=== PATIENT | female | born 1945 | race Caucasian/White ===

== ENCOUNTER → 2025-01-13 | Outpatient (CLI) | payer MEDICARE, SELFPAY ==
[2025-01-13 12:59] LABS: Absolute Lymphocyte Count 1.32 X10^3/uL (0.83-4.51); Absolute Neutrophil Count 10.6 X10^3/uL (2.0-7.7); Basophil# 0.03 X10^3/uL; Basophil% 0.2 % (0-1); Eosinophil# 0.03 X10^3/uL; Eosinophils% 0.2 % (0-5); Hematocrit 41.8 % (37-47); Hemoglobin 14.2 g/dL (12.0-15.0); Lymphocyte # 1.32 X10^3/ul (0.83-4.51); Lymphocyte % 10.2 % (19-41); Mean Corpuscular Hgb 30.6 pg (27.0-32.0); Mean Corpuscular Volume 90.1 fL (81-99); Mean Platelet Vol. 9.8 fl (6.2-12.0); Monocyte# 0.98 X10^3/uL; Monocyte% 7.5 % (0-10); NRBC Flagged by Analyzer 0 % (0-5); Neutrophil # 10.61 X10^3/uL (2.7-7.7); Neutrophil % 81.7 % (47-70); Platelet Count 278 K/mm3 (150-450); RBC Distribution Width CV 13.6 % (11.6-14.6); RBC Distribution Width SD 44.5 fl (35.1-43.9); Red Blood Count 4.64 M/mm3 (4.2-5.4)
[2025-01-13 13:35] LABS: ALB/GLOB Ratio 1.4 RATIO (0.9-2.4); AST(SGOT) 34 U/L (<=31); Alanine Aminotransfer ALT/SGPT 34 U/L (<=34); Albumin, Serum 4.2 g/dL (3.4-4.8); Alkaline Phosphatase 87 U/L (35-104); Anion Gap 13 (5-15); BUN 10 mg/dL (4-19); Calcium,Total 9.7 mg/dL (7.6-11.0); Carbon Dioxide 26.1 mmol/L (21.0-32.0); Chloride 90 mmol/L (98-108); Creatinine, Serum 0.69 mg/dL (0.70-1.20); EST Glomerular Filtration Rate 88 (>60); Glucose 95 mg/dL (70-99); Protein, Total 7.1 g/dL (5.9-8.4); Sodium Level 130 mmol/L (133-145); Total Bilirubin 0.43 mg/dL (0.00-1.30)
== END | disposition home or self-care (01) ==
PROVIDERS: PCP Family Medicine; Referring Provider Student in an Organized Health Care Education/Training Program; Visit Provider Student in an Organized Health Care Education/Training Program
DX: R10.9 Unspecified abdominal pain (principal); R11.2 Nausea with vomiting, unspecified
CPT/HCPCS: 36415; 80053; 85025

== ENCOUNTER → 2025-01-16 | Outpatient (CLI) | payer MEDICARE, SELFPAY ==
--- NOTE | 2025-01-16 07:49 | US_ITS ---
EXAM: US Abdomen Limited, Gallbladder CLINICAL INDICATION: N/V TECHNIQUE: Real-time ultrasound of the right upper quadrant with image documentation. COMPARISON: No relevant prior studies available. FINDINGS: LIVER: Liver measures 13.7 cm. GALLBLADDER: Negative Farrar's sign was reported by the orthodontic technician assistant. Cholelithiasis. COMMON BILE DUCT: Unremarkable as visualized. No stones. No dilation. Common bile duct measures 0.34 cm in diameter. PANCREAS: Unremarkable as visualized. RIGHT KIDNEY: Unremarkable. No stones. No hydronephrosis. The right kidney measures 9.4 x 4.7 x 4.4 cm. US/Gallbladder IMPRESSION: Cholelithiasis. Reading Location: [id number]
== END | disposition home or self-care (01) ==
PROVIDERS: PCP Family Medicine; Referring Provider Student in an Organized Health Care Education/Training Program; Visit Provider Student in an Organized Health Care Education/Training Program
DX: R10.9 Unspecified abdominal pain (principal); R11.2 Nausea with vomiting, unspecified
CPT/HCPCS: 76705

== ENCOUNTER 2025-03-19 11:49 | Day surgery (SDC) | payer MEDICARE, SELFPAY ==
--- NOTE | 2025-03-17 12:30 | PAT.ANE_ITS ---
Pre-Assessment Diagnosis/Proposed Procedure Planned Operative Procedure(s): COLONOSCOPY Anesthesia History Anesthesia History - director speech and hearing: Anesthesia History - director speech and hearing Hx Hospitalization No 03/17/25 11:32 Any Problems With Anesthesia No 03/17/25 11:32 Cholinesterase deficiency No 03/17/25 11:32 You/Your Family Experience No 03/17/25 11:32 fever (hyperthermia) with Relationship Recent Exposure to Contagious Disease Does patient have nerve No 03/17/25 11:32 stimulator Patient instructed to have device shut off --Does patient have Pacemaker or ICD? When Was Last Pacemaker Check QUESTION #4 FULL TEXT: You/Your Family Experience fever (hyperthermia) with Anesthesia Last Oral Intake Last Oral intake: Last Oral Intake NPO since Meds taken in AM with sips of water? Meds patient instructed to take am of surgery PONV PONV - director speech and hearing: PONV - director speech and hearing Female Yes 03/17/25 11:32 HX of Motion Sickness No 03/17/25 11:32 HX of N/V After Surgery No 03/17/25 11:32 Non-Smoker Yes 03/17/25 11:32 Duration of Surgery greater No 03/17/25 11:32 than 60 minutes Number of Risk Factors 2 03/17/25 11:32 PONV Score Moderate Risk 03/17/25 11:32 Respiratory Assessment Respiratory Assessment - director speech and hearing: Respiratory Tract Infection Hx - director speech and hearing Hx Respiratory Tract Infection No 03/17/25 11:32 STOP Sleep Apnea STOP Sleep Apnea - director speech and hearing: STOP Sleep Apnea - director speech and hearing Hx Hypertension No 03/17/25 11:32 Hx Sleep Apnea No 03/17/25 11:32 CPAP BIPAP Do you snore loudly (louder No 03/17/25 11:32 than talking or can be heard Do you often feel tired/ No 03/17/25 11:32 fatigued/ sleepy during daytime? Has anyone observed you stop No 03/17/25 11:32 breathing during sleep? STOP Results Negative 03/17/25 11:32 QUESTION #5 FULL TEXT : Do you snore loudly (louder than talking or can be heard through closed doors)? 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 Specify any problems Hx of Preganancy in last 3 No 03/17/25 11:32 Months Nurse Filling Out Transfusion [facility] 03/17/25 11:32 & Questions: Date: 03/17/25 03/17/25 11:32 Time: 11:37 03/17/25 11:32 Patient unable to answer at this time (ie. confused, unrespo /Reproduction History /Reproductive History - director speech and hearing: /Reproductive Hx- director speech and hearing Hx Now No 03/17/25 11:32 Gestational Age (in weeks): EDC: Hx Hx Para Hx Section SAB No 03/17/25 11:32 PFSH Medical History Wears hearing aid Wears glasses Post-menopausal Non-smoker Home Medications ?Medication ?Instructions ?Recorded ?Last Taken ?Type multivitamin with minerals 1 tab PO QDAY 01/13/25 Unkn own History (Multiple Vitamin-Minerals tablet) trazodone 50 mg tablet 50 mg PO QHS PRN sleep 01/13 Unknown History calcium 315 mg (as 2 tab PO DAILY 03/17/25 Unkn own History citrate)-vitamin D3 5 mcg (200 unit) tablet (Calcium Citrate + D) Allergy/AdvReac Type Severity Reaction Status Date / Time No Known Allergies Allergy Verified 03/17/25 11:30 Surgical History (Updated 03/17/25 @ 11:33 by Ariana Cullen) No history of previous surgery Social History Smoking Status: Never smoker Recommendation Anesthesia Recommendation Anesthesia recommendation: F/U recommended Follow up Details BMP Recommendation: Yes BMP Rec Details: We can check BMP on DOS -- should be fine but we will cancel if K+ is not improved.
--- NOTE | 2025-03-18 12:33 | PAT.ANE_ITS ---
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 When Was Last Pacemaker Check QUESTION #4 FULL TEXT: You/Your Family Experience fever (hyperthermia) with Anesthesia Last Oral Intake Last Oral intake: Last Oral Intake NPO since Meds taken in AM with sips of water? 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 Has anyone observed you stop No 03/17/25 11:32 breathing during sleep? STOP Results Negative 03/17/25 11:32 QUESTION #5 FULL TEXT : Do you snore loudly (louder than talking or can be heard through closed doors)? 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 Specify any problems Hx of Preganancy in last 3 No 03/17/25 11:32 Months Nurse Filling Out Transfusion [facility] 03/17/25 11:32 & Questions: Date: 03/17/25 03/17/25 11:32 Time: 11:37 03/17/25 11:32 Patient unable to answer at this time (ie. 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: /Reproductive Hx- supervisor painting shipyard Hx Now No 03/17/25 11:32 Gestational Age (in weeks): EDC: Hx Hx Para Hx Section SAB No 03/17/25 11:32 PFSH Medical History Wears hearing aid Wears glasses Post-menopausal Non-smoker Home Medications ?Medication ?Instructions ?Recorded ?Last Taken ?Type multivitamin with minerals 1 tab PO QDAY 01/13/25 Unkn own History (Multiple Vitamin-Minerals tablet) trazodone 50 mg tablet 50 mg PO QHS PRN sleep 01/13 Unknown History calcium 315 mg (as 2 tab PO DAILY 03/17/25 Unkn own History citrate)-vitamin D3 5 mcg (200 unit) tablet (Calcium Citrate + D) Allergy/AdvReac Type Severity Reaction Status Date / Time No Known Allergies Allergy Verified 03/17/25 11:30 Surgical History (Updated 03/17/25 @ 11:33 by Ariana Cullen) No history of previous surgery Social History Smoking Status: Never smoker Audit: Pertinent Findings Pertinent Findings Additional pertinent findings: Repeat blood work shows sodium of 138 and potassium of 3.5. These are acceptable to proceed with surgery. Recommendation Anesthesia Recommendation Anesthesia recommendation: OPTIMIZED for anesthesia (Repeat blood work shows sodium of 138 and potassium of 3.5. These are acceptable to proceed with surgery)
[2025-03-19] VITALS (7 sets, daily range): BP systolic 97–136; BP diastolic 55–84; PULSE 64–75; RESP 16–20; TEMP 36.1–36.7; O2SAT 96–98; BMI 21.5
--- NOTE | 2025-03-19 12:12 | PCM.HP.STD ---
HPI - General General Date of Admission: 03/19/25 Date of Service: 03/19/25 Chief Complaint: Nausea, vomiting and abdominal pain HPI Narrative MICHAEL GARCIA, is a 79 F who presents for the chief Complaint: LLQ abd pain Pt has had left lower quadrant pain for about 11 days now. Pain was sharp, intermittent and diffuse. It eventually localized to the LLQ. A few days after the pain began she started to notice constipation. She was seen by her PCP who started her on cipro for a presumed UTI. Then discontinued it and started Augmentin and then discontinued and started Bactrim. UA was normal. CT was ordered to rule out diverticulitis which was not seen. Since starting Bactrim she has developed nausea, vomiting and lack of appetite. She notes not having Bactrim since she was a teenager as it gave her a rash. She continues to have constipation only having a bm after taking miralax BID, senna and dulcolax. When she did have a bm it was formed and required effort. Last colonoscopy; over 5 years ago Cologuard; a few years ago [facility] Medical History Wears hearing aid Wears glasses Post-menopausal Non-smoker Home Medications ?Medication ?Instructions ?Recorded ?Last Taken ?Type multivitamin with minerals 1 tab PO QDAY 01/13/25 Unknown History (Multiple Vitamin-Minerals tablet) trazodone 50 mg tablet 50 mg PO QHS PRN sleep 01/13/25 Unknown History calcium 315 mg (as 2 tab PO DAILY 03/17/25 Unknown History citrate)-vitamin D3 5 mcg (200 unit) tablet (Calcium Citrate + D) Allergy/AdvReac Type Severity Reaction Status Date / Time No Known Allergies Allergy Verified 03/17/25 11:30 Surgical History No history of previous surgery Social History Smoking Status: Never smoker ROS Constitutional Constitutional: Denies fatigue, fever(s), poor appetite, weight gain or weight loss Gastrointestinal Gastrointestinal: Denies belching, bloating, change in bowel habits, change in stool character, chewing difficulty, coffee ground emesis, constipation, cramping, diarrhea, dyspepsia, dysphagia, early satiety, excessive flatus, fecal incontinence, heartburn, hematemesis, hematochezia, hemorrhoids, loose stools, melena, nausea, odynophagia, rectal bleeding, tenesmus, vomiting or weight changes Physical Exam Const alert, oriented x3, no apparent distress and healthy appearing General Appearance: cooperative GI normal to inspection, nondistended, normoactive bowel sounds, soft to palpation, non-tender and non-distended Percussion: normal to percussion Rectal Exam: deferred Assessment & Plan Assessment/Plan (1) Nausea and vomiting: (2) Abdominal pain: PLAN: Assessment and Plan Assessment and Plan (1) Nausea and vomiting: Status: Acute Plan: This is an 79 yo female pt here today for acute LLQ abdominal pain x11 days. Since the start of this she has developed constipation and n/v. She does not typically have constipation. CT abd/pelvis did not show any obstruction or acute process. It did show biliary sludge and stones however [facility] does not endorse RUQ pain. I believe her pain to be from the constipation. She has used miralax, senna and dulcolax with minimal relief. I provided samples of Linzess 145 mcg for her to trial. She will undergo colonoscopy to assess her GI tract as she has never had constipation. Since started Bactrim she has developed n/v. I advised that she speak with her PCP regarding discontinuing it. No signs of UTI or diverticulitis. The n/v may be multifactorial from antibiotics and constipation. CBC and CMP ordered to ensure no electrolyte abnormalities. I have also ordered a gallbladder US to further rule out gallbladder etiology of n/v. (2) Abdominal pain: Status: Acute Orders: Orders Gallbladder Today R10.9 - Unspecified abdominal pain, R11.2 - Nausea with vomiting, unspecified Comprehensive Metabolic Profil Today R10.9 - Unspecified abdominal pain, R11.2 - Nausea with vomiting, unspecified CBC W/Diff, Automated Today R10.9 - Unspecified abdominal pain, R11.2 - Nausea with vomiting, unspecified
[2025-03-19] MEDS: Lactated Ringers 1,000 ML 15 ML IV (12:36)
--- NOTE | 2025-03-19 13:00 | COLBX_PTH ---
PATIENT: MICHAEL GARCIA LOC: EN U#:[id number] AGE/SX: 79/F ROOM: RE03/19/[address]: Dr. Dave Carmichael DO : 1945 BED: DIS: 03/19/2025 SPEC #: [id number] RECD: 03/19/25 15:39 STATUS: ABIGAIL MCKINLEY #: [id number] JHONNY: 03/19/25 13:[address]: Dave Carmichael DEPT: SURGICAL PATHOLOGY RECD BY: Artemio Delgado ENTERED: 03/19/25 15:56 SP TYPE: COLON BX OT DR: Dr. Aureliano Forrester MD Tissues: A - Ileum, NOS B - COLON BIOPSY C - Rectum, NOS Procedures: Surgery Specimen Level IV HEADER OPERATION: Colonoscopy and biopsy and polypectomy PRE-OP DIAGNOSIS: Nausea, vomiting, abdominal pain TISSUE SUBMITTED: A- Terminal ileum biopsy, B- Random colon biopsies, C- Rectal polyp MICROSCOPIC DIAGNOSIS A. Terminal ileum, biopsy: - Prominent mucosal lymphoid tissue, favor reactive. B. Colon, random biopsy: - No specific pathologic change. - The histologic features of microscopic colitis are not demonstrated. C. Rectum, polyp, biopsy: - Tubular adenoma. MICROSCOPIC DESCRIPTION Slides are reviewed. GROSS DESCRIPTION A. Received in fixative is one container labeled with the patient's name and designated Terminal ileum biopsy. The specimen consists of multiple irregular fragments of light ordaz soft tissue that in aggregate measure 0.7 x 0.6 x 0.1 cm. The specimen is totally submitted in one cassette. B. Received in fixative is one container labeled with the patient's name and designated Random colonic biopsy. The specimen consists of multiple irregular fragments of light ordaz soft tissue that in aggregate measure 1.1 x 0.5 x 0.1 cm. The specimen is totally submitted in one cassette. C. Received in fixative is one container labeled with the patient's name and designated Rectal polyp. The specimen consists of one irregular fragment of light ordaz soft tissue that measures 0.4 cm. The specimen is totally submitted in one cassette. 03/19/2025 CPT:93371s6
--- NOTE | 2025-03-19 13:00 | PRE.ANES_ITS ---
ASA Classification* ASA Classification ASA Classification: 2 Assessment & Plan Anesthesia* Anesthesia Assessment Anesthesia Assessment: Discussed sedation and/or anesthesia options, risks, benefits, and alternatives with patient/parents/legal guardian/POA. Questions invited. The patient/parents/legal guardian/POA seems to understand and agrees to proceed with anesthesia plan. Reviewed the physical assessment, medical history, allergy history and patient home medications list prior to surgery/procedure/anesthetic and documented any changes. Performed airway and anesthesia risk assessments. Anesthesia Type Anesthesia Type: MAC History Source History Obtained from:: Patient and Chart Anesthesia Focused Assessment* Temperature: 98.1 F Pulse Rate: 66 Blood Pressure: 136/84 Respiratory Rate: 16 Pulse Ox: 98 Oxygen Delivery Method: Room Air Airway Assessment Mouth opens: >3 cm Mallampati Score: III Teeth Condition: Caps/Crowns (Patient has 1 crown. It is tight.) and Missing (Patient has 1 missing tooth.) Neck Range of motion (ROM): Limited ROM (Slight decrease in extension) Labs Anesthesia Preop lab: CBC WBC 13.0 K/mm3 (4.4-11.0) H 01/13/25 11:05 5 RBC 4.64 M/mm3 (4.2-5.4) 01/13/25 11:05 01/13/25 Hgb 14.2 g/dL (12.0-15.0) 01/13/25 11:05 01/13/25 Hct 41.8 % (37-47) 01/13/25 11:05 01/13/25 Plt Count 278 K/mm3 (150-450) 01/13/25 11:05 01/13/25 CHEMISTRY Potassium 3.0 mmol/L (3.3-5.1) L 01/13/25 11:05 01/13/25 Sodium 130 mmol/L (133-145) L 01/13/25 11:05 01/13/25 BUN 10 mg/dL (4-19) 01/13/25 11:05 01/13/25 Creatinine 0.69 mg/dL (0.70-1.20) L 01/13/25 11:05 Glucose 95 mg/dL (70-99) 01/13/25 11:05 01/13/25 COAG Pre-Assessment Diagnosis/Proposed Procedure Planned Operative Procedure(s): COLONOSCOPY Anesthesia History Anesthesia History - testing and regulating chief: Anesthesia History - testing and regulating chief Hx Hospitalization No 03/17/25 11:32 Any Problems With Anesthesia No 03/17/25 11:32 Cholinesterase deficiency No 03/17/25 11:32 You/Your Family Experience No 03/17/25 11:32 fever (hyperthermia) with Relationship Recent Exposure to Contagious No 03/19/25 12:22 Disease Does patient have nerve No 03/17/25 11:32 stimulator Patient instructed to have device shut off --Does patient have Pacemaker No 03/19/25 12:22 or ICD? When Was Last Pacemaker Check QUESTION #4 FULL TEXT: You/Your Family Experience fever (hyperthermia) with Anesthesia Last Oral Intake Last Oral intake: Last Oral Intake NPO since Meds taken in AM with sips of water? Meds patient instructed to take am of surgery Any additional information?: Yes NPO since: 09:00 (Patient finished prep at 9 AM.) Meds taken in AM with sips of water?: No PONV PONV - testing and regulating chief: PONV - testing and regulating chief Female Yes 03/17/25 11:32 HX of Motion Sickness No 03/17/25 11:32 HX of N/V After Surgery No 03/17/25 11:32 Non-Smoker Yes 03/17/25 11:32 Duration of Surgery greater No 03/17/25 11:32 than 60 minutes Number of Risk Factors 2 03/17/25 11:32 PONV Score Moderate Risk 03/17/25 11:32 Height & Weight Height & Weight: Anesthesia: Height & Weight Height 5 ft 4 in 03/19/25 12:22 Weight: 57 kg 03/19/25 12:22 Body Mass Index (BMI) 21.5 03/19/25 12:22 Respiratory Assessment Respiratory Assessment - testing and regulating chief: Respiratory Tract Infection Hx - testing and regulating chief Hx Respiratory Tract Infection No 03/17/25 11:32 STOP Sleep Apnea STOP Sleep Apnea - testing and regulating chief: STOP Sleep Apnea - testing and regulating chief Hx Hypertension No 03/17/25 11:32 Hx Sleep Apnea No 03/17/25 11:32 CPAP BIPAP Do you snore loudly (louder No 03/17/25 11:32 than talking or can be heard Do you often feel tired/ No 03/17/25 11:32 fatigued/ sleepy during daytime? Has anyone observed you stop No 03/17/25 11:32 breathing during sleep? STOP Results Negative 03/17/25 11:32 QUESTION #5 FULL TEXT : Do you snore loudly (louder than talking or can be heard through closed doors)? 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 Specify any problems Hx of Preganancy in last 3 No 03/17/25 11:32 Months Nurse Filling Out Transfusion [facility] 03/17/25 11:32 & Questions: Date: 03/17/25 03/17/25 11:32 Time: 11:37 03/17/25 11:32 Patient unable to answer at this time (ie. confused, unrespo /Reproduction History /Reproductive History - testing and regulating chief: /Reproductive Hx- testing and regulating chief Hx Now No 03/17/25 11:32 Gestational Age (in weeks): EDC: Hx Hx Para Hx Section SAB No 03/17/25 11:32 Active Medications Active Medications: Current Medications Generic Name Dose Route Start Last Admin Trade Name Freq PRN Reason Stop Dose Admin Lactated Ringer's 1,000 mls @ 15 mls/hr 03/19/25 12:15 03/19/25 12:36 IV 15 mls/hr .Q48H [place] Administration PFSH Medical History Wears hearing aid Wears glasses Post-menopausal Non-smoker Home Medications ?Medication ?Instructions ?Recorded ?Last Taken ?Type multivitamin with minerals 1 tab PO QDAY 01/13/25/02/14 History (Multiple Vitamin-Minerals tablet) trazodone 50 mg tablet 50 mg PO QHS PRN sleep 04/23 /25 06/25/25 History calcium 315 mg (as 2 tab PO DAILY 03/17/2502/22 History citrate)-vitamin D3 5 mcg (200 unit) tablet (Calcium Citrate + D) Allergy/AdvReac Type Severity Reaction Status Date / Time No Known Allergies Allergy Verified 03/17/25 11:30 Surgical History (Updated 03/19/25 @ 13:[address] Crescencio Jacob MD) Normal colonoscopy Social History Smoking Status: Never smoker Review of Systems (Anesthesia) ROS Narrative System reviewed and no additional complaints, except as documented.
--- NOTE | 2025-03-19 13:53 | PCM.POST.ANE ---
Anesthesia: Postop Eval I Current Vital Signs Temperature: 96.9 F Pulse Rate: 64 Blood Pressure: 97/55 Respiratory Rate: 20 Pulse Ox: 97 Assessment Airway patent: Yes Spontaneous unlabored respirations: Yes nausea: No Vomiting: No Anesthesia Complication: No Fluid Hydration Crystalloid volume administer (ml): 500 Total IV fluid infused: 500 Progress Note Anesthesia document: Postop Eval 1 completed: Yes
--- NOTE | 2025-03-19 13:55 | OP.CCLET_ITS ---
03/19/2025 Aureliano Forrester Re : Colonoscopy procedure for Ashley Liriano Nakita Forrester This procedure was performed on Wednesday, March 19, 2025. My impressions and recommendations are as follows: Impressions : - One 8 mm polyp in the rectum, removed with a cold biopsy forceps. Resected and retrieved. - Congested mucosa in the entire examined colon. Biopsied. - Diverticulosis in the recto-sigmoid colon, in the sigmoid colon and at the hepatic flexure. - Congested mucosa in the terminal ileum. Recommendations : - Discharge patient to home. - Resume previous diet. - Continue present medications. - Await pathology results. - Repeat colonoscopy for surveillance based on pathology results. My findings are described in the full procedure note, which is enclosed. If I can be of further assistance, please feel free to contact me at . Sincerely, Dave Carmichael, 03/19/2025 1:55:28 PM This report has been signed electronically.
--- NOTE | 2025-03-19 13:55 | OP.COLON_ITS ---
Patient Name: Ashley Liriano Procedure Date: 03/19/2025 1:18 PM Date of : 1945 Age: 79 Procedure: Colonoscopy Indications: Abdominal pain in the left lower quadrant, Clinically significant diarrhea of unexplained origin Providers: Dave Carmichael DO Referring MD: Aureliano Forrester Medicines: Monitored Anesthesia Care Patient Profile: This is an 79 year old female. Refer to note in patient chart for documentation of history and physical. Last Colonoscopy: several years ago. Complications: No immediate complications. Procedure: Pre-Anesthesia Assessment: - Prior to the procedure, a History and Physical was performed, and patient medications and allergies were reviewed. The patient is competent. The risks and benefits of the procedure and the sedation options and risks were discussed with the patient. All questions were answered and informed consent was obtained. Patient identification and proposed procedure were verified by the physician in the pre-procedure area. Mental Status Examination: alert and oriented. Airway Examination: normal oropharyngeal airway and neck mobility. Respiratory Examination: clear to auscultation. CV Examination: normal. Prophylactic Antibiotics: The patient does not require prophylactic antibiotics. Prior Anticoagulants: The patient has taken no anticoagulant or antiplatelet agents. ASA Grade Assessment: II - A patient with mild systemic disease. After reviewing the risks and benefits, the patient was deemed in satisfactory condition to undergo the procedure. The anesthesia plan was to use monitored anesthesia care (MAC). Immediately prior to administration of medications, the patient was re-assessed for adequacy to receive sedatives. The heart rate, respiratory rate, oxygen saturations, blood pressure, adequacy of pulmonary ventilation, and response to care were monitored throughout the procedure. The physical status of the patient was re-assessed after the procedure. After I obtained informed consent, the scope was passed under direct vision. Throughout the procedure, the patient's blood pressure, pulse, and oxygen saturations were monitored continuously. The Colonoscope was introduced through the anus and advanced to the terminal ileum. The colonoscopy was performed without difficulty. The patient tolerated the procedure well. The quality of the bowel preparation was adequate. The terminal ileum, ileocecal valve, appendiceal orifice, and rectum were photographed. Scope In: 1:25:15 PM Scope Withdrawal Time 0 hours 12 minutes 39 seconds Scope Out: 1:46:16 PM Total Procedure Duration Time 0 hours 21 minutes 1 second Findings: The perianal and digital rectal examinations were normal. An 8 mm polyp was found in the rectum. The polyp was sessile. The polyp was removed with a cold biopsy forceps. Resection and retrieval were complete. Verification of patient identification for the specimen was done. Estimated blood loss was minimal. An area of mildly congested mucosa was found in the entire colon. Biopsies were taken with a cold forceps for histology. Verification of patient identification for the specimen was done. Estimated blood loss was minimal. Multiple small-mouthed diverticula were found in the recto-sigmoid colon, sigmoid colon and hepatic flexure. A patchy area of the terminal ileum was congested. Impression: - One 8 mm polyp in the rectum, removed with a cold biopsy forceps. Resected and retrieved. - Congested mucosa in the entire examined colon. Biopsied. - Diverticulosis in the recto-sigmoid colon, in the sigmoid colon and at the hepatic flexure. - Congested mucosa in the terminal ileum. Recommendation: - Discharge patient to home. - Resume previous diet. - Continue present medications. - Await pathology results. - Repeat colonoscopy for surveillance based on pathology results. Procedure Code(s): --- Professional --- 14074, Colonoscopy, flexible; with biopsy, single or multiple CPT copyright 2021 [employer]. All rights reserved. The codes documented in this report are preliminary and upon coating machine operator helper review may be revised to meet current compliance requirements. Dave Carmichael DO 03/19/2025 1:55:28 PM This report has been signed electronically. Number of Addenda: 0 Note Initiated On: 03/19/2025 1:18 PM
--- NOTE | 2025-03-19 14:43 | POSTOPAN2_ITS ---
Anesthesia Postop Eval I Sum Postop Eval Completion status Anesthesia document: Postop Eval 1 completed: Yes Anesthesia Postop Eval I Summary Anesthesia Postop Eval I Summary: Anesthesia Postop Eval I: Assessment Summary Airway patent Yes 03/19/25 13:53 DIRECTOR [email or web address] Spontaneous unlabored Yes 03/19/25 13:53 DIRECTOR PHYSICAL [email or web address] respirations Mental status nausea No 03/19/25 13:53 DIRECTOR PHYSICAL [email or web address] Vomiting No 03/19/25 13:53 DIRECTOR PHYSICAL [email or web address] Anesthesia Postop Eval I: Fluid Summary Crystalloid volume administer 500 03/19/25 13:53 DIRECTOR PHYSICAL [email or web address] (ml) Colloids volume administered ( ml) Blood Product volume administered (ml) Total IV fluid infused 500 03/19/25 13:53 DIRECTOR PHYSICAL [email or web address] Anesthesia Postop Eval I: Summary Notes Anesthesia Complication No 03/19/25 13:53 DIRECTOR [email or web address] [email or web address] Anesthesia Complication Comment: Post-operative progress note Anesthesia: Postop Eval II Evaluation Mental status: Awake Pain Level: 0 nausea: No Vomiting: No
--- NOTE | 2025-03-19 14:43 | PCM.POSTANE2 ---
Anesthesia Postop Eval I Sum Postop Eval Completion status Anesthesia document: Postop Eval 1 completed: Yes Anesthesia Postop Eval I Summary Anesthesia Postop Eval I Summary: Anesthesia Postop Eval I: Assessment Summary Airway patent Yes 03/19/25 13:53 HEAD OF [email or web address] Spontaneous unlabored Yes 03/19/25 13:53 HEAD OF IT.CSIR respirations Mental status nausea No 03/19/25 13:53 HEAD OF IT.CSIR Vomiting No 03/19/25 13:53 HEAD OF IT.CSIR Anesthesia Postop Eval I: Fluid Summary Crystalloid volume administer 500 03/19/25 13:53 HEAD OF IT.CSIR (ml) Colloids volume administered ( ml) Blood Product volume administered (ml) Total IV fluid infused 500 03/19/25 13:53 HEAD OF IT.CSIR Anesthesia Postop Eval I: Summary Notes Anesthesia Complication No 03/19/25 13:53 HEAD OF IT.CSIR Anesthesia Complication Comment: Post-operative progress note Anesthesia: Postop Eval II Evaluation Mental status: Awake Pain Level: 0 nausea: No Vomiting: No
== END 2025-03-19 14:29 | disposition home or self-care (01) ==
LOC: EN 11:49 → AC 11:50
PROVIDERS: PCP Family Medicine; Referring Provider Family Medicine; Visit Provider Internal Medicine Gastroenterology
PROC: 0DJD8ZZ Inspection of Lower Intestinal Tract, Via Natural or Artificial Opening Endoscopic (ICD-10-PCS; CPT 45378; principal; 2025-03-19 12:55)
DX: D12.8 Benign neoplasm of rectum (principal); R11.2 Nausea with vomiting, unspecified; R19.7 Diarrhea, unspecified; K57.30 Diverticulosis of large intestine without perforation or abscess without bleeding; K63.89 Other specified diseases of intestine
CPT/HCPCS: 45380; 88305; J2405